=== PATIENT | male | born 1980 | race Caucasian/White ===

== ENCOUNTER 2017-04-13 08:18 | Emergency (ER) | payer OTHER, BC ==
[2017-04-13] MEDS ORDERED: Ketorolac 60 MG/2 ML SDV IM ONE (08:47)
--- NOTE | 2017-04-13 08:50 | EDM.PDOC ---
ED HPI GENERAL MEDICAL PROBLEM - General Chief Complaint: Upper Extremity Injury/Pain Stated Complaint: L SHOULDER PAIN Time Seen by Provider: 04/13/17 08:35 - History of Present Illness INITIAL COMMENTS - FREE TEXT/NARRATIVE: HISTORY AND PHYSICAL: History of present illness: The patient is a 36-year-old male who presents complaints of pain to his left shoulder that started this morning while he was using a sledgehammer. The patient is right-hand dominant but tells me that he had an injury to the left shoulder in the past for which he did not seek treatment and which has given him some chronic episodic pain but he is not sure what his initial injury was. The patient says that he was doing this for tremor when he started feeling severe discomfort in the anterior posterior shoulder but it does not radiate down his arm and does not radiate to his neck. He has no biceps triceps elbow forearm wrist or hand pain and no neurosensory changes. He has taken Tylenol prior to coming here. He has no other systemic complaints Review of systems: As per history of present illness and below otherwise all systems reviewed and negative. Past medical history: As per history of present illness and as reviewed below otherwise noncontributory. Surgical history: As per history of present illness and as reviewed below otherwise noncontributory. Social history: No reported history of drug or alcohol abuse. Family history: As per history of present illness and as reviewed below otherwise noncontributory. Physical exam: Gen.: Well-developed overweight man is nontoxic and speaking clearly and easily in ED. Vital signs reviewed by me HEENT: Atraumatic, normocephalic, negative for conjunctival pallor or scleral icterus, mucous membranes moist, throat clear, neck supple, nontender, trachea midline. There are no midline step-offs in his defects of the cervical spine Lungs: Clear to auscultation, breath sounds equal bilaterally, chest nontender. Heart: S1S2, regular rate and rhythm no overt murmurs Abdomen: Soft, nondistended, nontender. NABS Pelvis: Stable nontender. Genitourinary: Deferred. Rectal: Deferred. Extremities: Atraumatic appearing throughout with full range of motion of all extremities. There is reproducible muscle tenderness at palpation of the shoulder musculature at the deltoid extending into the trapezius and into the posterior upper back. There is no discrete rotator cuff tenderness. There are no palpable bony deformities or tenderness of the clavicle or humerus/scapula. The patient is able to range of motion at the left upper extremity but there is subjective discomfort with abduction. There is no clinical dislocation and no neurosensory changes or weakness distally. There is no distal humeral elbow forearm wrist or hand tenderness. The legs are, negative for cords or calf pain. Neurovascular unremarkable. Neuro: Awake, alert, oriented. Cranial nerves II through XII unremarkable. Cerebellum unremarkable. Motor and sensory unremarkable throughout. Exam nonfocal. Back: There are no midline step-offs in his defects of the thoracic or lumbar spine Diagnostics: X-ray left shoulder Therapeutics: Toradol, sling Impression: Left shoulder pain strain Definitive disposition and diagnosis as appropriate pending reevaluation and review of above. Left Shoulder Pain Score (Numeric/FACES): 5 - Related Data Allergies Allergy/AdvReac Type Severity Reaction Status Date / Time No Known Allergies Allergy Verified 04/13/17 08:42 Home Meds: Home Meds . [No Known Home Meds] 04/13/17 [History] Past Medical History - Past Surgical History Musculoskeletal Surgical History: Reports: Arthroscopic Knee Social & Family History - Family History Family Medical History: Noncontributory - Tobacco Use Smoking Status *Q: Current Every Day Smoker Years of Tobacco use: 10 Packs/Tins Daily: 1 - Recreational Drug Use Recreational Drug Use: No Review of Systems - Review of Systems Review Of Systems: ROS reveals no pertinent complaints other than HPI. ED EXAM, GENERAL - Physical Exam Exam: See Below (See dictation) Course - Vital Signs Last Recorded V/S: Last Vital Signs Temp 36.4 C 04/13/17 08:42 Pulse 104 H 04/13/17 08:42 Resp 18 04/13/17 08:42 BP 144/81 H 04/13/17 08:42 Pulse Ox 97 04/13/17 08:42 - Orders/Labs/Meds Orders: Active Orders 24 hr Category Date Time Status DME for Discharge [COMM] Stat Oth 04/13/17 10:12 Ordered Meds: Medications Discontinued Medications Generic Name Dose Route Start Last Admin Trade Name Freq PRN Reason Stop Dose Admin Ketorolac Tromethamine 60 mg 04/13/17 08:47 04/13/17 09:11 Toradol IM 04/13/17 08:48 60 mg ONETIME ONE Administration Departure - Departure Time of Disposition: 10:14 Disposition: Home, Self-Care 01 Condition: Good Clinical Impression: Left shoulder pain Qualifiers: Chronicity: acute Qualified Code(s): M25.512 - Pain in left shoulder - Discharge Information Referrals: PCP,None [Primary Care Provider] - Forms: ED Department Discharge Additional Instructions: The following information is given to patients seen in the emergency department who are being discharged to home. This information is to outline your options for follow-up care. We provide all patients seen in our emergency department with a follow-up referral. The need for follow-up, as well as the timing and circumstances, are variable depending upon the specifics of your emergency department visit. If you don't have a primary care physician on staff, we will provide you with a referral. We always advise you to contact your personal physician following an emergency department visit to inform them of the circumstance of the visit and for follow-up with them and/or the need for any referrals to a consulting specialist. The emergency department will also refer you to a specialist when appropriate. This referral assures that you have the opportunity for followup care with a specialist. All of these measure are taken in an effort to provide you with optimal care, which includes your followup. Under all circumstances we always encourage you to contact your private physician who remains a resource for coordinating your care. When calling for followup care, please make the office aware that this follow-up is from your recent emergency room visit. If for any reason you are refused follow-up, please contact the [facility] emergency department at and ask to speak to the emergency department charge nurse. [facility]Orthopedic clinic Professional Building [address] [place] [phone] Please use ice to area the next 24 hours and after any time you do any activity with this area. Use medications as prescribed for pain and please call and follow-up in our clinic next week for reevaluation and further care. Return to ER as needed and as discussed. Wear sling for comfort. - My Orders Last 24 Hours: My Active Orders 04/13/17 10:12 DME for Discharge [COMM] Stat - Assessment/Plan Last 24 Hours: My Active Orders 04/13/17 10:12 DME for Discharge [COMM] Stat
--- NOTE | 2017-04-13 09:55 | CR ---
EXAMINATION: Left shoulder HISTORY: Pain COMPARISON: None TECHNIQUE: 3 views FINDINGS/IMPRESSION: There is no acute osseous abnormality, dislocation, or fracture. Bone mineraliza tion and joint spaces are grossly preserved.
== END 2017-04-13 10:32 | disposition home or self-care (01) ==
LOC: EDBD 08:18 → MW.ED 08:18
DX: S46.912A Strain of unspecified muscle, fascia and tendon at shoulder and upper arm level, left arm, initial encounter (principal); F17.210 Nicotine dependence, cigarettes, uncomplicated; X58.XXXA Exposure to other specified factors, initial encounter; Y93.89 Activity, other specified
CPT/HCPCS: 73030; 96372; 99283; A4566; J1885; 99284